=== PATIENT | male | born 1995 | race Caucasian/White ===

== ENCOUNTER 2021-10-01 22:49 | Outpatient (REF) | payer OTHER, SELFPAY ==
[2021-10-01 23:34] LABS: COVID-19 Test Negative (Negative)
== END 2021-10-01 22:50 | disposition home or self-care (01) ==
LOC: HO.LAB 22:49
PROVIDERS: Referring Provider Internal Medicine; Visit Provider Internal Medicine
DX: Z20.822 Contact with and (suspected) exposure to COVID-19 (principal)
CPT/HCPCS: 87635; C9803